=== PATIENT | female | born 1960 | race American Indian/Alaskan Native ===

== ENCOUNTER 2016-11-30 15:56 | Emergency (ER) | payer OTHER ==
[2016-11-30 16:11] VITALS: TEMP 98.5; BMI 39.8
[2016-11-30] MEDS ORDERED: Famotidine 20mg/50ml 20 MG in Premixed IV 50 EA IVPB STA (16:33)
[2016-11-30] MEDS ORDERED: Famotidine 20mg/50ml 20 MG/50 ML BAG IVPB ONE (16:45)
[2016-11-30 17:00] LABS: BASO # 0.01 K/mm3 (0.0-2.0); BASO % 0.3 % (0.0-3.0); EOS % 0.3 % (1.5-5.0); GRAN # 2.29 (1.4-6.5); GRAN % 65.8 % (50.0-68.0); HEMOGLOBIN 12.3 gm/dL (12.0-16.0); LYMPH # 1.1 (1.2-3.4); LYMPH % 30.7 % (22.0-35.0); MEAN CELL VOLUME 86.2 fL (80.0-105.0); MEAN CORPUSCULAR HEMOGLOBIN 28.9 pg (25.0-35.0); MEAN CORPUSCULAR HGB CONC 33.5 g/dl (31.0-37.0); MEAN PLATELET VOLUME 10.8 fl (7.0-11.0); MONO # 0.1 (0.1-0.6); MONO % 2.9 % (1.0-6.0); PLATELET COUNT 204 10^3/uL (120.0-450.0); RBC 4.26 10^6/uL (3.5-6.1); RED CELL DISTRIBUTION WIDTH 13.9 % (11.5-14.5); WHITE BLOOD COUNT 3.5 10^3/ul (4.5-11.0)
[2016-11-30] MEDS ORDERED: Morphine 2 mg/ml ISec IVP STA (17:04)
--- NOTE | 2016-11-30 17:07 | RAD ---
HISTORY: abdominal pain COMPARISON: 04/21/2015 FINDINGS: LUNGS: No active pulmonary disease. PLEURA: No significant pleural effusion identified, no pneumothorax apparent. CARDIOVASCULAR: Normal. OSSEOUS STRUCTURES: No significant abnormalities. VISUALIZED UPPER ABDOMEN: Normal. OTHER FINDINGS: None. IMPRESSION: No active disease.
[2016-11-30] MEDS ORDERED: Iohexol 240 (50 ml) ONE (17:12)
--- NOTE | 2016-11-30 17:15 | ED PDOC ---
Arrival/HPI <Garland Abel DO - Last Filed: 11/30/16 18:31> - General Historian: Patient <Kin Swan - Last Filed: 11/30/16 21:49> - General Chief Complaint: Abdominal Pain Time Seen by Provider: 11/30/16 15:59 - History of Present Illness Narrative History of Present Illness (Text): 11/30/16 17:10 Pt is a 56 year old female with past medical history of Hypertension, migraines , and hypokalemia who presents with abdominal pain for the past three hours. The patient reports the pain is sharp, mid epigastric with limited radiation to the rest of her abdomen. Patient rates pain as severe. Pt reports nausea and vomiting since onset. Pt denies fever, diarrhea, cough, change in bowel movement. Pt denies chest pain, shortness of breath, or cough. Patient also complains of burning pain with urination that has been present for the past few days. She denies any hematuria or vaginal discharge. 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) - Hematological/Oncological Hx Blood Disorders: Yes Hx Blood Transfusions: Yes (with ectopic ) Hx Blood Transfusion Reaction: No - Integumentary Hx Dermatological Disorder: No - Musculoskeletal/Rheumatological Hx Musculoskeletal Disorders: Yes Hx Arthritis: Yes Hx Falls: No - Gastrointestinal Other/Comment: obesity - Genitourinary/Gynecological Hx Genitourinary Disorders: No - Psychiatric Hx Psychophysiologic Disorder: Yes Hx Depression: Yes Hx Substance Use: No - Past Surgical History Past Surgical History: No Previous - Surgical History Hx Tubal Ligation: Yes Other/Comment: ectopic d& c - Anesthesia Hx Anesthesia: Yes Hx Anesthesia Reactions: No Hx Malignant Hyperthermia: No - Suicidal Assessment Feels Threatened In Home Enviroment: No <Kin Swan - Last Filed: 11/30/16 21:49> Family/Social History - Physician Review Nursing Documentation Reviewed: Yes Family/Social History: No Known Family HX Smoking Status: Former Smoker Hx Alcohol Use: No Hx Substance Use: No Hx Substance Use Treatment: No <Kin Swan - Last Filed: 11/30/16 21:49> Allergies/Home Meds <LancenelsonGarland ramsay DO - Last Filed: 11/30/16 18:31> <Kin Swan - Last Filed: 11/30/16 21:49> Allergies/Adverse Reactions: Allergies No Known Allergies Allergy (Verified 10/25/16 12:18) Home Medications: Home Meds Medication Instructions Recorded Confirmed Acetaminophen/Butalbital/Caf 1 tab PO Q8H PRN 10/25/16 11/30/16 [Fioricet] Aspirin [Ecotrin] 81 mg PO DAILY 10/25/16 11/30/16 Ergocalciferol (Vitamin D2) 50,000 unit PO QWK 10/25/16 11/30/16 [Vitamin D2] Etodolac [Lodine] 400 mg PO BID 10/25/16 11/30/16 Lisinopril/Hydrochlorothiazide 1 tab PO DAILY 10/25/16 11/30/16 [Lisinopril-Hctz 20-25 mg Tab] Naproxen [Naprosyn] 500 mg PO BID 10/25/16 11/30/16 Pantoprazole Sodium [Protonix] 40 mg PO DAILY 10/25/16 11/30/16 amLODIPine [Norvasc] 10 mg PO DAILY 10/25/16 11/30/16 Review of Systems - Physician Review All systems were reviewed & negative as marked: Yes - Review of Systems Constitutional: absent: Fevers Gastrointestinal: Abdominal Pain, Nausea, Vomiting. absent: Stool Changes, Constipation, Diarrhea, Hematochezia, Hematemesis Genitourinary Female: Dysuria Musculoskeletal: absent: Back Pain <Kin Swan - Last Filed: 11/30/16 21:49> Physical Exam Vital Signs Reviewed: Yes Temperature: Afebrile Blood Pressure: Hypertensive Pulse: Regular Respiratory Rate: Normal Appearance: Positive for: Well-Appearing Pain Distress: None Mental Status: Positive for: Alert and Oriented X 3 - Systems Exam Head: Present: Atraumatic, Normocephalic Pupils: Present: PERRL Extroacular Muscles: Present: EOMI Mouth: Present: Moist Mucous Membranes Neck: Present: Normal Range of Motion Respiratory/Chest: Present: Clear to Auscultation, Good Air Exchange. No: Respiratory Distress, Accessory Muscle Use Cardiovascular: Present: Regular Rate and Rhythm, Normal S1, S2. No: Murmurs Abdomen: Present: Tenderness (mid epigastric area and RLQ), Normal Bowel Sounds (hypoactive), Guarding. No: Distention, Peritoneal Signs Upper Extremity: Present: Normal Inspection, NORMAL PULSES. No: Cyanosis, Edema Lower Extremity: Present: Normal Inspection, NORMAL PULSES. No: Edema Neurological: Present: GCS=15, CN II-XII Intact, Speech Normal Skin: Present: Warm, Dry, Normal Color. No: Rashes Psychiatric: Present: Alert, Oriented x 3, Normal Insight, Normal Concentration <Kin Swan - Last Filed: 11/30/16 21:49> Vital Signs Temp Pulse Resp BP Pulse Ox 11/30/16 20:30 80 17 161/86 H 95 11/30/16 18:00 78 18 158/93 H 98 11/30/16 16:10 98.5 F 85 18 158/95 H 97 Medical Decision Making - Lab Interpretations I have reviewed the lab results: Yes - RAD Interpretation Content Management Specialist: ED Physician - EKG Interpretation Interpreted by ED Physician: Yes Type: 12 lead EKG <Garland Abel DO - Last Filed: 11/30/16 18:31> - Lab Interpretations I have reviewed the lab results: Yes - RAD Interpretation Content Management Specialist: ED Physician - EKG Interpretation Interpreted by ED Physician: Yes Type: 12 lead EKG <Kin Swan - Last Filed: 11/30/16 21:49> ED Course and Treatment: In agreement with resident note, which includes further HPI details. Patient was seen and evaluated with resident, came up with plan and treatment together. Pt, whose past medical history includes hypertension, migraines, and hypokalemia , presented for abdominal pain x3 hours. Reprots associated nausea and vomiting , also complaining of dysuria for past few days. Plan: -- CT Abdomen and Pelvis -- EKG -- Chest X-ray -- Labs, cardiac enzymes, lipase -- Urinalysis -- Zofran -- Pepcid -- Morphine -- Reassess and dispo (Garland Abel DO) 11/30/16 17:17 Impression: Pt is a 56 year old female with past medical history of hypertension and migraines presents complaining of abdominal pain for the past 3 hours. Differential Diagnosis included but are not limited to: - Gastritis - Dyspepsia - Peptic Ulcer disease Plan: - Labs: CBC, CMP, Lipase, Urinalysis, - Imaging: EKG, CXR, CT abdomen and pelvis with IV and PO contrast - Meds: Zofran, pepcid, morphine - Reassess and disposition Progress Notes: 11/30/16 21:29 (Kin Swan) - Lab Interpretations Lab Results: 11/30/16 16:30 11/30/16 16:30 Lab Results 11/30/16 17:55: Urine Color Yellow, Urine Appearance Clear, Urine pH 6.5, Ur Specific Jackson 1.020, Urine Protein Trace H, Urine Glucose (UA) Negative, Urine Ketones 15 H, Urine Blood Trace-lysed H, Urine Nitrate Negative, Urine Bilirubin Negative, Urine Urobilinogen 0.2, Ur Leukocyte Esterase Negative, Urine RBC 1 - 3, Urine WBC 0 - 2, Ur Epithelial Cells 0 - 2 11/30/16 16:30: Sodium 142, Potassium 3.3 L, Chloride 103, Carbon Dioxide 30, Anion Gap 12, BUN 15, Creatinine 0.7, Est GFR ( Amer) > 60, Est GFR (Non- Af Amer) > 60, Random Glucose 114 H, Calcium 9.6, Total Bilirubin 0.5, AST 27, ALT 24, Alkaline Phosphatase 99, Lactate Dehydrogenase 547, Total Creatine Kinase 254 H, CK-MB (CK-2) 1.1, CK-MB (CK-2) % Cancelled, Troponin I < 0.01, Total Protein 8.6 H, Albumin 4.4, Globulin 4.2, Albumin/Globulin Ratio 1.0 L, Lipase 120 11/30/16 16:30: WBC 3.5 L, RBC 4.26, Hgb 12.3, Hct 36.7, MCV 86.2, MCH 28.9, MCHC 33.5, RDW 13.9, Plt Count 204, MPV 10.8, Gran % 65.8, Lymph % (Auto) 30.7, [place] % (Auto) 2.9, Eos % (Auto) 0.3 L, Baso % (Auto) 0.3, Gran # 2.29, Lymph # 1.1 L, [place] # 0.1, Eos # 0.0, Baso # 0.01 - RAD Interpretation Radiology Orders: 11/30/16 16:27 CHEST PORTABLE [RAD] Stat 11/30/16 17:04 ABDOMEN & PELVIS [ABD PELVIS PO & IV CONTRAST] [CT] Stat - Medication Orders Current Medication Orders: Discontinued Medications Famotidine (Pepcid 20mg/50ml Premix) 20 mg in 50 mls @ 100 mls/hr IVPB ONCE ONE Stop: 11/30/16 17:14 Last Admin: 11/30/16 16:48 Dose: 100 mls/hr Iohexol (Omnipaque 240 (50 Ml)) Confirm Administered Dose 50 ml .ROUTE .STK-MED ONE Stop: 11/30/16 17:13 Iohexol (Omnipaque 350 150 Ml) Confirm Administered Dose 150 ml .ROUTE .STK-MED ONE Stop: 11/30/16 19:01 Metoclopramide HCl (Reglan) 10 mg IVP STAT STA Stop: 11/30/16 19:59 Last Admin: 11/30/16 20:19 Dose: 10 mg Morphine Sulfate (Morphine) 2 mg IVP STAT STA Stop: 11/30/16 17:05 Last Admin: 11/30/16 17:10 Dose: 2 mg Ondansetron HCl (Zofran Inj) 4 mg IVP STAT STA Stop: 11/30/16 16:28 Last Admin: 11/30/16 16:48 Dose: 4 mg - PA / EDGE BASTER / Resident Statement FRANCO has reviewed & agrees with the documentation as recorded. FRANCO has examined the patient and agrees with the treatment plan. <Kin Swan - Last Filed: 11/30/16 21:49> Disposition/Present on Arrival <Garland Abel DO - Last Filed: 11/30/16 18:31> - Present on Arrival Any Indicators Present on Arrival: No History of DVT/PE: No History of Uncontrolled Diabetes: No Urinary Catheter: No History of Decub. Ulcer: No History Surgical Site Infection Following: None - Disposition Have Diagnosis and Disposition been Completed?: Yes Disposition Time: 21:38 Patient Plan: Discharge <Kin Swan - Last Filed: 11/30/16 21:49> - Disposition Diagnosis: Abdominal pain Disposition: HOME/ ROUTINE Condition: STABLE Discharge Instructions (ExitCare): Abdominal Pain (ED) Additional Instructions: Mrs. Chavez, thank you for letting us take care of you today. Your provider was Dr. Swan. You were treated for abdominal pain. The emergency medical care you received today was directed at your acute symptoms. If you were prescribed any medication, please fill it and take as directed. It may take several days for your symptoms to resolve. Return to the Emergency Department if your symptoms worsen, do not improve, or if you have any other problems. Please contact your doctor or call one of the physicians/clinics you have been referred to that are listed on the Patient Visit Information form that is included in your discharge packet. Bring any paperwork you were given at discharge with you along with any medications you are taking to your follow up visit. Our treatment cannot replace ongoing medical care by a primary care provider (PCP) outside of the emergency department. Thank you for allowing the [facility] team to be part of your care today. Follow up with primary care physician. Prescriptions: Metronidazole [Flagyl] 500 mg PO TID #21 tablet traMADol [Ultram] 50 mg PO TID #15 tab
[2016-11-30 17:17] LABS: ALBUMIN 4.4 g/dL (3.0-4.8); ALT/SGPT 24 U/L (7-56); AST/SGOT 27 U/L (15-39); BLOOD UREA NITROGEN 15 mg/dL (7-21); CALCIUM 9.6 mg/dL (8.4-10.5); GFR AFRICAN-AMERICAN > 60; GFR NON-AFRICAN AMERICAN > 60; LIPASE 120 U/L (23-300)
[2016-11-30 17:34] LABS: TROPONIN I < 0.01 ng/mL
[2016-11-30 18:19] LABS: CK-MB 1.1 ng/mL (0.0-3.6)
[2016-11-30 18:32] LABS: PH,URINE 6.5 (4.7-8.0); URINE BILIRUBIN NEGATIVE (NEGATIVE); URINE BLOOD TRACE-LYSED (NEGATIVE); URINE GLUCOSE (UA) NEGATIVE (NEGATIVE); URINE LEUKOCYTE ESTERASE NEGATIVE Leu/uL (NEGATIVE); URINE NITRATE NEGATIVE (NEGATIVE); URINE PROTEIN TRACE mg/dL (<30 mg/dL); URINE UROBILINOGEN 0.2 E.U./dL (<1 E.U./dL)
[2016-11-30 18:42] LABS: URINE COLOR YELLOW (YELLOW)
[2016-11-30 18:43] LABS: URINE APPEARANCE CLEAR (CLEAR)
[2016-11-30 18:58] LABS: URINE EPITHELIAL CELLS 0 - 2 /hpf (0-5); URINE WBC 0 - 2 /hpf (0-6)
--- NOTE | 2016-11-30 21:03 | CT ---
EXAM: CT Abdomen and Pelvis With Intravenous Contrast CLINICAL HISTORY: 56 years old, female; Pain; Abdominal pain; Generalized; Prior surgery; Surgery type: Tubal ligation - ectopic ; Additional info: Mid epigastric abdominal pain TECHNIQUE: Axial computed tomography images of the abdomen and pelvis with intravenous contrast. This CT exam was performed using one or more of the following dose reduction techniques: automated exposure control, adjustment of the mA and/or kV according to patient size, and/or use of iterative reconstruction technique. Coronal and sagittal reformatted images were created and reviewed. CONTRAST: 145 mL of OMNI 350 administered intravenously. COMPARISON: CT - ABD PELVIS W/O PO OR IV CONT 01/14/2012 6:57:06 AM FINDINGS: Lower thorax: Minimal atelectasis/scarring. ABDOMEN: Liver: Unremarkable. No mass. Gallbladder and bile ducts: No calcified stones. No ductal dilation. Pancreas: No ductal dilation. No mass. Spleen: No splenomegaly. Adrenals: Mild hypertrophy of adrenal glands. Kidneys and ureters: No mass. No hydronephrosis. Stomach and bowel: No definite mural thickening. Several minimal to mildly distended loops of small bowel within midabdomen and pelvis. Appendix: Normal caliber. No definite inflammation. Trace fluid adjacent to appendix. PELVIS: Bladder: Unremarkable. Reproductive: Tubal ligation. ABDOMEN and PELVIS: Intraperitoneal space: Small free fluid within abdomen. No free air. Bones/joints: Mild degenerative changes of spine. No acute fracture. Soft tissues: Unremarkable. Vasculature: Unremarkable. No aneurysm. Lymph nodes: No pathologically enlarged lymph nodes. IMPRESSION: 1. Mild small bowel dilatation. DDX: Ileus, early obstruction. 2. Normal caliber appendix with adjacent free fluid. Clinical correlation is needed. 3. Small ascites. 4. Incidental/non-acute findings are described above.
[2016-11-30 22:02] VITALS: PULSE 86; RESP 18; O2SAT 96
[2016-11-30 22:03] VITALS: BP 161/103
--- NOTE | 2016-12-01 11:35 | CARD ---
APPROVED REPORT EKG Measurement Heart [id number] <Conclusion> Normal sinus rhythm Moderate voltage criteria for LVH, may be normal variant Borderline ECG
== END 2016-11-30 22:20 | disposition home or self-care (01) ==
LOC: ED 15:56
DX: R10.9 Unspecified abdominal pain (principal); I10 Essential (primary) hypertension; E87.6 Hypokalemia
CPT/HCPCS: 71010; 74177; 80053; 81001; 82550; 82553; 83615; 83690; 84484; 85025; 93005; 96365; 96375; 99284; J2270; J2405; J2765; Q9966; Q9967